=== PATIENT | female | born 1935 | race Caucasian/White ===

== ENCOUNTER 2019-05-06 14:15 | Emergency (ER) | payer OTHER ==
[~2019-05-06] VITALS: Ht 157.5 cm; Wt 59.0 kg
[~2019-05-06 14:15] MED LIST: ACET-2619 PO; ATRO1TAB PO; CHOL20001 PO; CLON0.5T PO; DICY10CA14 PO; ESCI10TA PO; GABA300C PO; ISOS30TE PO; LOVA10TA27 PO; MAGN400S60 PO; MECL-272 PO; OMEP40EC1 PO; OXCA150T2 PO; PRIM50TA13 PO; RIVA20TA PO; TRA200 PO
[2019-05-06] MEDS ORDERED: KETOROLAC 60 MG/2 ML VIAL IM ONE (14:25)
[2019-05-06 14:26] VITALS: BP 138/79
--- NOTE | 2019-05-06 14:26 | NUR ---
PT TO ER BED 8
--- NOTE | 2019-05-06 14:35 | NUR ---
BIBA FOR MECHANICAL FALL. PER EMS PT WAS TRYING TO PLUG IN A FAN WHEN SHE FELL, PER EMS STAFF REPORTS PT DID NOT HIT HEAD, NO LOC, PT AT BASELINE. PT HAS SKIN TEAR ON RT FORARM AND COMPLAINING OF PAIN TO LT SHOULDER AND LOWER BACK. MEDHX:DEMENTIA, HTN, ANGINA, HLD, A-FIB, VIT D DEFICIENCY
--- NOTE | 2019-05-06 14:59 | NUR ---
Patient does not wish to proceed with Medication (toradol IM) recommended by Dr. Hurtado. Patient given information related to possible complications. Patient verbalizes understanding of risks involved from refusing medication.
--- NOTE | 2019-05-06 15:00 | NUR ---
transported to radiology via [facility].
[2019-05-06 16:23] VITALS: BP 154/75
--- NOTE | 2019-05-06 16:23 | NUR ---
Patient discharged with v/s stable. Written and verbal after care instructions given and explained. Patient alert, oriented and verbalized understanding of instructions. Wheel Chair Assisted with to car. All questions addressed prior to discharge. ID band removed. Patient advised to follow up with PMD. Rx of MOTRIN 600 MG given. Patient educated on indication of medication including possible reaction and side effects. Opportunity to ask questions provided and answered.
== END 2019-05-06 16:23 | disposition home or self-care (01) ==
LOC: MED 14:15
DX: M25.512 Pain in left shoulder (principal); M54.5 Low back pain; F03.90 Unspecified dementia, unspecified severity, without behavioral disturbance, psychotic disturbance, mood disturbance, and anxiety; K21.9 Gastro-esophageal reflux disease without esophagitis; I10 Essential (primary) hypertension; F32.9 Major depressive disorder, single episode, unspecified; Z95.0 Presence of cardiac pacemaker; Z98.890 Other specified postprocedural states; Z79.899 Other long term (current) drug therapy
CPT/HCPCS: 72220; 73030; 99283; J1885